=== PATIENT | male | born 1980 | race Caucasian/White ===

== ENCOUNTER 2016-09-07 01:34 | Emergency (ER) | payer OTHER ==
[~2016-09-07] VITALS: Ht 177.8 cm; Wt 102.1 kg
--- NOTE | 2016-09-07 01:35 | NUR ---
PT BROUGHT BY [employer] FOR MEDICAL CLEARANCE AND BLOOD DRAW. PT REPORTS HE TAKES "HYPERGLYCEMIA PILLS FOR BODY FAT", DENIES DM. DENIES PAIN. AWARE.
--- NOTE | 2016-09-07 01:35 | NUR ---
Patient to ER bed 05 to gown for evaluation. Side rails up.
[2016-09-07 01:44] VITALS: BP 148/90; PULSE 110; RESP 18; TEMP 98.5; O2SAT 98
--- NOTE | 2016-09-07 01:53 | NUR ---
ER Dr. ROSS at bedside examining patient.
--- NOTE | 2016-09-07 02:00 | NUR ---
Written and verbal consent obtained from patient for blood alcohol, name and verified by patient. Disinfected patient's skin with iodine that did not contain alcohol or other volatile organic compound. Collected the blood from the subject named by venipuncture, in the presence of Officer #[id number]. Used a sterile, dry hypodermic needle and dry vacuum blood collection. The dry vacuum blood collection was supplied by the officer named above. Withdrew a specimen of blood from left AC of the subject named above. Inverted the blood tube several times to ensure that the preservative and anticoagulant were thoroughly mixed in the blood specimen. I initialed the blood tube label for identification. The labeled blood tube was handed directly to the Officer named above. The blood tube stopper remained in place while I had possession of the blood tube. The Officer placed tube into envelope and sealed it in my presence. Envelope initialed by myself and Officer named above. Patient tolerated well, bandage applied, and bleeding controlled.
[2016-09-07 02:10] VITALS: BP 131/82; PULSE 100; RESP 18; TEMP 98.6; O2SAT 98
--- NOTE | 2016-09-07 02:10 | NUR ---
PT AMBULATED OUT OF ER IN HANDCUFFS ACCOMPANIED BY LAW E[employer]
== END 2016-09-07 02:10 ==
LOC: SED 01:34
DX: Z02.83 Encounter for blood-alcohol and blood-drug test (principal); E11.9 Type 2 diabetes mellitus without complications
CPT/HCPCS: 99283